=== PATIENT | male | born 1935 | race Caucasian/White ===

== ENCOUNTER → 2021-12-06 | Outpatient (CLI) | payer OTHER ==
--- NOTE | 2021-12-06 13:41 | DIREP ---
PROCEDURE:XRAY KNEE 2 VWS-LT COMPARISON:None. INDICATIONS:NEEDED FOR HISTORY PHYSICAL EVALUATION CPT CODE: 24295, ICD-10: Z00.00 FINDINGS: BONES:Left total knee arthroplasty hardware, without hardware fracture or loosening. No acute bony abnormality. JOINTS:Normal. SOFT TISSUES:Diffuse vascular calcification OTHER:No additional findings. CONCLUSION:Left total knee arthroplasty hardware placement, without acute abnormality noted. Dictated by: Brad Banks M.D. on 12/06/2021 at 01:39 PM
--- NOTE | 2021-12-06 13:44 | DIREP ---
PROCEDURE:XRAY KNEE 2 VWS-RT COMPARISON:None. INDICATIONS:NEEDED FOR HISTORY PHYSICAL EVALUATION CPT CODE: 48931, ICD-10: Z00.00 FINDINGS: BONES:Right total knee arthroplasty hardware in near-anatomic alignment. No acute bony abnormality. JOINTS:Normal. SOFT TISSUES:Vascular calcification. OTHER:No additional findings. CONCLUSION:Total knee arthroplasty hardware without acute abnormality noted Dictated by: Brad Banks M.D. on 12/06/2021 at 01:40 PM
== END | disposition home or self-care (01) ==
LOC: RAD 12:25
PROVIDERS: ATTEND Nurse Practitioner
DX: Z00.00 Encounter for general adult medical examination without abnormal findings (principal)
CPT/HCPCS: 73560